=== PATIENT | female | born 1990 | race Two or more races ===

== ENCOUNTER 2024-09-14 19:04 | Outpatient (REF) | payer BC, SELFPAY ==
[2024-09-21 21:07] LABS: Age Gdln ACOG Testing Note (.); HPV Aptima Negative (Negative); IGP, Aptima HPV, rfx 16/18,45 Note (.)
== END 2024-09-14 19:05 | disposition home or self-care (01) ==
LOC: LAB 19:04
PROVIDERS: Visit Provider Obstetrics & Gynecology
DX: Z01.419 Encounter for gynecological examination (general) (routine) without abnormal findings (principal)
CPT/HCPCS: 87624; 88175